=== PATIENT | female | born 1940 | race Caucasian/White ===

== ENCOUNTER 2016-11-03 18:25 | Emergency (ER) | payer MEDICARE, OTHER ==
[~2016-11-03 18:25] MED LIST: DIAZ5TAB3; DULO60CA; FLUC200T50; HYDR2TAB2; OXYCONTIN 10 MG; SUMA50TA2 PO; VALP250C9; [UNRECOGNIZED DRUG - CODE]
== END 2016-11-03 18:45 | disposition left against medical advice (07) ==
LOC: EDBD 18:25 → ER 18:29
DX: R06.02 Shortness of breath (principal); Z53.21 Procedure and treatment not carried out due to patient leaving prior to being seen by health care provider